=== PATIENT | male | born 1930 | race Caucasian/White ===

== ENCOUNTER → 2017-03-08 | Outpatient (CLI) | payer MEDICARE ==
[~2017-03-08] MED LIST: EZET1TAB4 PO; GADOBUTROL 10 MMOL/10 ML VIAL ONE; LEVO125T5 PO; SITA1TAB PO; VALS1TAB12 PO
== END | disposition home or self-care (01) ==
LOC: CFH 08:11
PROVIDERS: ATTEND Urology
DX: N42.39 Other dysplasia of prostate (principal); R97.20 Elevated prostate specific antigen [PSA]; N18.9 Chronic kidney disease, unspecified
CPT/HCPCS: 72197; A9585

== ENCOUNTER → 2017-07-12 | Outpatient (CLI) | payer MEDICARE ==
[~2017-07-12] MED LIST changes: +EZET1TAB30 PO; -EZET1TAB4 PO; -GADOBUTROL 10 MMOL/10 ML VIAL ONE
== END | disposition home or self-care (01) ==
LOC: CFH 09:31
PROVIDERS: ATTEND Urology
DX: I70.0 Atherosclerosis of aorta (principal); C61 Malignant neoplasm of prostate
CPT/HCPCS: 71020

== ENCOUNTER → 2017-07-12 | Outpatient (CLI) | payer MEDICARE | END | disposition home or self-care (01) | LOC: PETCFH 09:28 | PROVIDERS: ATTEND Urology | DX: C61 Malignant neoplasm of prostate (principal); K25.9 Gastric ulcer, unspecified as acute or chronic, without hemorrhage or perforation | CPT/HCPCS: 71020; 78306; A9503 ==